=== PATIENT | female | born 1935 | race Caucasian/White ===

== ENCOUNTER → 2016-07-05 | Outpatient (CLI) | payer MEDICARE, OTHER ==
[~2016-07-05] MED LIST: AMBI10TA PO; ASPI325T PO; FISH300C2 PO; NITR0.4S SL; PERC5TAB12 PO; SIMV20TA PO; TAB-TAB PO
[2016-07-05 13:46] LABS: ALKALINE PHOSPHATASE 53 U/L (45-117); ALT (GPT) 25 U/L (10-53); ANION GAP 7 MEQ/L (5-15); AST (GOT) 18 U/L (15-37); BICARBONATE 27.6 MEQ/L (21.0-32.0); BLOOD UREA NITROGEN 12 MG/DL (7-18); CHLORIDE 107 MEQ/L (98-107); GLOMERULAR FILTRATION RATE 84 ML/MIN (>89); GLUCOSE,FASTING 84 MG/DL (74-99); HDL CHOLESTEROL 99.6 MG/DL (40.0-60.0); LDL CHOLESTEROL 61 MG/DL (0-99); POTASSIUM 3.9 MEQ/L (3.5-5.1); SODIUM (NA) 142 MEQ/L (136-145); TOTAL BILIRUBIN ADULT 0.3 MG/DL (0.2-1.0)
== END ==
LOC: PLAB 08:12
PROVIDERS: ATTEND Family Medicine
DX: I10 Essential (primary) hypertension (principal)
CPT/HCPCS: 36415; 80053; 80061

== ENCOUNTER → 2016-12-10 | Outpatient (CLI) | payer MEDICARE, OTHER ==
[2016-12-10 09:27] LABS: AUTOMATED NEUTROPHIL # 2.8 TH/MM3 (1.8-7.7); BASOPHIL % 0.6 % (0.0-2.0); EOSINOPHIL # 0.2 TH/MM3 (0-0.4); EOSINOPHIL % 4.2 % (0.0-4.0); HEMATOCRIT 43.7 % (35.0-46.0); HEMO FLAGS DIFF FINAL; LYMPHOCYTE # 1.3 TH/MM3 (1.0-4.8); MEAN CELL VOLUME 90.6 FL (80.0-100.0); MEAN CORPUSCULAR HEMOGLOBIN 30.9 PG (27.0-34.0); MEAN CORPUSCULAR HGB CONC 34.1 % (32.0-36.0); NEUT % 59.2 % (16.0-70.0); PLATELET COUNT 191 TH/MM3 (150-450); RED BLOOD COUNT 4.82 MIL/MM3 (4.00-5.30); RED CELL DISTRIBUTION WIDTH 12.9 % (11.6-17.2); WHITE BLOOD COUNT 4.7 TH/MM3 (4.0-11.0)
[2016-12-10 09:56] LABS: ANION GAP 7 MEQ/L (5-15); AST (GOT) 17 U/L (15-37); BLOOD UREA NITROGEN 13 MG/DL (7-18); CHLORIDE 103 MEQ/L (98-107); GLOMERULAR FILTRATION RATE 84 ML/MIN (>89); GLUCOSE,FASTING 82 MG/DL (74-99); POTASSIUM 4.1 MEQ/L (3.5-5.1); SODIUM (NA) 139 MEQ/L (136-145)
[2016-12-10 10:02] LABS: ALKALINE PHOSPHATASE 70 U/L (45-117); ALT (GPT) 24 U/L (10-53); HDL CHOLESTEROL 85.8 MG/DL (40.0-60.0); LDL CHOLESTEROL 73 MG/DL (0-99); TOTAL BILIRUBIN ADULT 0.4 MG/DL (0.2-1.0)
== END ==
LOC: PLAB 07:44
PROVIDERS: ATTEND Family Medicine
DX: E78.5 Hyperlipidemia, unspecified (principal)
CPT/HCPCS: 36415; 80053; 80061; 85025

== ENCOUNTER → 2017-02-13 | Outpatient (CLI) | payer MEDICARE, OTHER ==
[2017-02-13 13:23] LABS: BACTERIA, URINE FEW /hpf; BLOOD, URINE MOD (NEG); COMMENT (UR) CULTURE INDICATED; CULTURE IF INDICATED CULTURE INDICATED; GLUCOSE,URINE NEG (NEG); KETONE, URINE NEG (NEG); MUCUS URINE FEW /lpf (OCC); NITRITE,URINE NEG (NEG); PH, URINE 6.5 (5.0-8.5); URINE COLOR YELLOW (YELLW/STRAW)
== END ==
LOC: PLAB 09:07
PROVIDERS: ATTEND Family Medicine
DX: I10 Essential (primary) hypertension (principal); K59.00 Constipation, unspecified; E78.5 Hyperlipidemia, unspecified; G47.00 Insomnia, unspecified; I47.1 Supraventricular tachycardia
CPT/HCPCS: 81001; 87077; 87086; 87186

== ENCOUNTER 2017-05-04 14:00 | Emergency (ER) | payer MEDICARE, OTHER ==
[~2017-05-04] VITALS: Ht 165.1 cm; Wt 80.0 kg
[2017-05-04 14:08] VITALS: BP 216/86; PULSE 112; RESP 24; TEMP 98.4; O2SAT 92
--- NOTE | 2017-05-04 14:21 | PD ---
HPI Chief Complaint: Complaint Time Seen by Provider: 14:20 Travel History International Travel<30 days: No Contact w/Intl Traveler<30days: No Traveled to known affect area: No History of Present Illness HPI 82-year-old female came to the emergency room with history of suprapubic pain and dysuria for past 2 days. Patient notes that she has a bladder infection because she has had this many times in the past. The last one was about 6 months ago. She says it's very uncomfortable and usually she called her doctor' s office and they prescribed her on the phone but the office is closed today and hence she had to come here. Patient was initially tachycardic in triage. However when I was in the room I checked the pulse myself and it was in the 70s. PFSH Past Medical History Narrative Medical List of his past medical, surgical, social and family history is reviewed from the nursing note. Arthritis: Yes Autoimmune Disease: No Heart Rhythm Problems: No Cancer: Yes (MELANOMA RIGHT EYE, SKIN MELANOMA) Cardiac Catheterization: Yes (NO STENTS) Cardiovascular Problems: Yes (PAROXYSMAL SVT) High Cholesterol: Yes Chemotherapy: No Chest Pain: No Congestive Heart Failure: No Cerebrovascular Accident: No Diabetes: No Diminished Hearing: No Endocrine: No Genitourinary: No Hepatitis: No Hiatal Hernia: No Immune Disorder: No Musculoskeletal: Yes Neurologic: Yes (PERIPHERAL NEUROPATHY, LE WEAKNESS) Psychiatric: No Reproductive: No Respiratory: No Migraines: No Radiation Therapy: No Seizures: No Thyroid Disease: No Past Surgical History Abdominal Surgery: Yes (APPENDECTOMY) Appendectomy: Yes Arteriovenous Shunt: No Body Medical Devices: FALSE RIGHT EYE Cardiac Surgery: No Section: Yes (X 4) Ear Surgery: No Endocrine Surgery: No Eye Surgery: Yes (RIGHT EYE REMOVAL FOR MELANOMA) Genitourinary Surgery: No Gynecologic Surgery: Yes (C SECTIONX4, WESTLEY) Hysterectomy: Yes Insulin Pump: No Joint Replacement: No Oral Surgery: No Pacemaker: No Thoracic Surgery: No Tonsillectomy: Yes Other Surgery: Yes (BREAST AUGMENTATION) Social History Alcohol Use: Yes (TWICE A MONTH) Tobacco Use: No Substance Use: No Allergies-Medications (Allergen,Severity, Reaction): Coded Allergies: No Known Allergies (Verified Adverse Reaction, Unknown, 05/04/17) Comments No known drug allergies. Reported Meds & Prescriptions Reported Meds & Active Scripts Active Macrobid (Nitrofurantoin Monoh/Nitrofur Macro) 100 Mg Cap 100 Mg PO BID 10 Days Reported Zolpidem (Zolpidem Tartrate) 10 Mg Tab 10 Mg PO HS PRN Simvastatin 20 Mg Tab 20 Mg PO DAILY One Daily (Multiple Vitamin) 1 Tab 1 Tab PO DAILY Aspirin 325 Mg Tab 325 Mg PO DAILY Narrative Medication List of his home medications reviewed from the nursing note. Review of Systems Except as stated in HPI: all other systems reviewed are Neg Genitourinary: Positive: Urgency, Frequency, Dysuria Physical Exam Narrative GENERAL: Awake, alert, elderly, anxious SKIN: Focused skin assessment warm/dry. HEAD: Atraumatic. Normocephalic. EYES: Pupils equal and round. No scleral icterus. No injection or drainage. Right prosthetic eye ENT: No nasal bleeding or discharge. Mucous membranes pink and moist. NECK: Trachea midline. No JVD. CARDIOVASCULAR: Regular rate and rhythm. No murmur appreciated. RESPIRATORY: No accessory muscle use. Clear to auscultation. Breath sounds equal bilaterally. GASTROINTESTINAL: Abdomen soft, non-tender, nondistended. Hepatic and splenic margins not palpable. MUSCULOSKELETAL: No obvious deformities. No clubbing. No cyanosis. No edema. NEUROLOGICAL: Awake and alert. No obvious cranial nerve deficits. Motor grossly within normal limits. Normal speech. PSYCHIATRIC: Appropriate mood and affect; insight and judgment normal. Data Data Last Documented VS Vital Signs Date Time Temp Pulse Resp B/P (MAP) Pulse Ox O2 Delivery O2 Flow Rate FiO2 05/04/17 15:27 05/04/17 15:20 76 18 95 Room Air 05/04/17 14:43 97.9 Orders Orders Urinalysis - C+S If Indicated (05/04/17 14:02) Nitrofurantoin Monohyd Macrocr (Macrobid (05/04/17 14:30) Phenazopyridine (Pyridium) (05/04/17 14:30) Urine Culture (05/04/17 14:10) Ed Discharge Order (05/04/17 15:08) Labs Laboratory Tests Test 05/04/17 14:10 Urine Collection Type CLEAN CATCH Urine Color STRAW Urine Turbidity SLIGHT Urine pH 6.5 Urine Specific [place] 1.004 Urine Protein NEG mg/dL Urine Glucose (UA) NEG mg/dL Urine Ketones NEG mg/dL Urine Occult Blood SMALL Urine Nitrite NEG Urine Bilirubin NEG Urine Leukocyte Esterase LARGE Urine RBC 4-9 /hpf Urine WBC 50-99 /hpf Urine WBC Clumps MOD Urine Squamous Epithelial Cells 0-5 /hpf Urine Amorphous Sediment MOD Urine Bacteria FEW /hpf Microscopic Urinalysis Comment CULTURE INDICATED Urine Collection Time 1410 [facility] Medical Decision Making Medical Screen Exam Complete: Yes Emergency Medical Condition: Yes Medical Record Reviewed: Yes Differential Diagnosis Cystitis Narrative Course 3:06 PM patient was given Pyridium and Macrobid. UA has come back in its positive. I'll discharge her home on a prescription of Macrobid. Procedures EKG Prior to Arrival: No Diagnosis Primary Impression: Cystitis Referrals: Primary Care Physician Additional Instructions: Take the medication as per the prescription direction. Return to the ER if the condition worsens or any other new concerns. Lots of fluid and cranberry juice. Med/Other Pt SpecificInfo: Prescription(s) given Scripts Nitrofurantoin Monohydrate Macrocrystals (Macrobid) 100 Mg Cap 100 MG PO BID for Infection for 10 Days, #20 CAP 0 Refills Prov: Reny De La Garza MD 05/04/17 Disposition: DISCHARGE HOME Condition: Stable Reny De La Garza MD May 04, 2017 14:21
[2017-05-04] MEDS ORDERED: PHENAZOPYRIDINE HCL 100 MG TAB PO ONE (14:30)
[2017-05-04] MEDS ORDERED: NITROFURANTOIN MONOHYD MACROCR 100 MG CAP PO ONE (14:30)
[2017-05-04 14:43] VITALS: TEMP 97.9
[2017-05-04 14:47] LABS: BILIRUBIN, URINE NEG (NEG); BLOOD, URINE SMALL (NEG); GLUCOSE,URINE NEG (NEG); KETONE, URINE NEG (NEG); NITRITE,URINE NEG (NEG); PH, URINE 6.5 (5.0-8.5); URINE LEUKOCYTE ESTERASE LARGE (NEG)
[2017-05-04 14:53] LABS: URINE COLOR STRAW (YELLW/STRAW)
[2017-05-04 14:55] LABS: AMORPHOUS SEDIMENT, URINE MOD; BACTERIA, URINE FEW /hpf; SQUAMOUS EPITHELIAL CELL URINE 0-5 /hpf (0-5); WHITE BLOOD CELL CLUMPS MOD
[2017-05-04] MEDS ORDERED: MACR100C2 PO (15:07)
[2017-05-04 15:20] VITALS: BP 133/76; PULSE 76; RESP 18; O2SAT 95
[2017-05-04] MEDS ORDERED: SIMV20TA PO (16:36)
[2017-05-04] MEDS ORDERED: MULT-207 PO (16:36)
[2017-05-04] MEDS ORDERED: ASPI-183 PO (16:36)
[2017-05-04] MEDS ORDERED: ZOLP10TA3 PO (16:36)
== END 2017-05-04 15:27 | disposition home or self-care (01) ==
LOC: PHED 14:00
DX: N30.90 Cystitis, unspecified without hematuria (principal); M19.90 Unspecified osteoarthritis, unspecified site; E78.00 Pure hypercholesterolemia, unspecified; G62.9 Polyneuropathy, unspecified; Z79.82 Long term (current) use of aspirin; Z79.899 Other long term (current) drug therapy
CPT/HCPCS: 81001; 87086; 99283

== ENCOUNTER 2017-09-09 18:51 | Emergency (ER) | payer MEDICARE, OTHER ==
[~2017-09-09] VITALS: Ht 165.1 cm; Wt 80.0 kg
[~2017-09-09 18:51] MED LIST changes: -AMBI10TA PO; +ASPI-183 PO; -ASPI325T PO; -FISH300C2 PO; +MACR100C2 PO; +MULT-207 PO; -NITR0.4S SL; -PERC5TAB12 PO; -TAB-TAB PO; +ZOLP10TA3 PO
[2017-09-09 18:59] VITALS: BP 179/76; PULSE 68; RESP 17; TEMP 99.3; O2SAT 93
[2017-09-09] MEDS ORDERED: METO25TA3 PO (19:12)
[2017-09-09] MEDS ORDERED: SODIUM CHLORID 0.9% 500 ML INJ 500 ML IV ONE (19:30)
[2017-09-09] MEDS ORDERED: SODIUM CHLORIDE 0.9% FLUSH 10 ML FLUSH IVF PRN (19:30)
--- NOTE | 2017-09-09 19:37 | PD ---
HPI Chief Complaint: Syncope/Near-Syncope Time Seen by Provider: 19:20 Travel History International Travel<30 days: No Contact w/Intl Traveler<30days: No Traveled to known affect area: No History of Present Illness HPI The patient is 82-year-old female who presents to the emergency department via EMS after syncopal episode. The patient states she was up late last night watching [employer] baseball until approximately 1:15 AM. The patient then got up early this morning to take her son into an appointment to obtain a port for cancer. The patient then states she multiple things to do throughout the day and eventually made a 12 ballpark earlier tonight. The patient was sitting down with her head down praying when she apparently had a syncopal episode. The patient does not recall the events, however, states when she awakened she felt nauseous and had one episode of vomiting. When EMS arrived they noted that her systolic blood pressure was in the 80s. The patient states that her symptoms have resolved upon arrival to the emergency department. The patient states she has been under a lot of stress recently with her son having carcinoma and her sister also having pancreatic carcinoma. The patient denied any chest pain, shortness of breath, palpitations, lightheadedness, or headache prior to the event or after the event. She states her symptoms have currently resolved. The patient's primary physician is Dr. Tristan. The patient's park superintendent is Dr. Stanley. [facility] Past Medical History Arthritis: Yes Autoimmune Disease: No Heart Rhythm Problems: No Cancer: Yes (MELANOMA RIGHT EYE, SKIN MELANOMA) Cardiac Catheterization: Yes (NO STENTS) Cardiovascular Problems: Yes (Dr. Lo, heart caths) High Cholesterol: Yes Chemotherapy: No Chest Pain: No Congestive Heart Failure: No Cerebrovascular Accident: No Diabetes: No Diminished Hearing: No Endocrine: No Genitourinary: No Hepatitis: No Hiatal Hernia: No Immune Disorder: No Musculoskeletal: Yes Neurologic: Yes (PERIPHERAL NEUROPATHY, LE WEAKNESS) Psychiatric: No Reproductive: No Respiratory: No Migraines: No Radiation Therapy: No Seizures: No Thyroid Disease: No ?: Not Past Surgical History Abdominal Surgery: Yes (APPENDECTOMY) Appendectomy: Yes Arteriovenous Shunt: No Body Medical Devices: FALSE RIGHT EYE Cardiac Surgery: No Section: Yes (X 4) Ear Surgery: No Endocrine Surgery: No Eye Surgery: Yes (RIGHT EYE REMOVAL FOR MELANOMA) Genitourinary Surgery: No Gynecologic Surgery: Yes (C SECTIONX4, WESTLEY) Hysterectomy: Yes Insulin Pump: No Joint Replacement: No Oral Surgery: No Pacemaker: No Thoracic Surgery: No Tonsillectomy: Yes Other Surgery: Yes (BREAST AUGMENTATION) Social History Alcohol Use: Yes (TWICE A MONTH) Tobacco Use: No Substance Use: No Allergies-Medications (Allergen,Severity, Reaction): Coded Allergies: No Known Allergies (Verified Adverse Reaction, Unknown, 09/09/17) Reported Meds & Prescriptions Reported Meds & Active Scripts Active Reported Metoprolol Tartrate 25 Mg Tab 12.5 Mg PO BID Zolpidem (Zolpidem Tartrate) 10 Mg Tab 10 Mg PO HS PRN Simvastatin 20 Mg Tab 20 Mg PO DAILY One Daily (Multiple Vitamin) 1 Tab 1 Tab PO DAILY Aspirin 325 Mg Tab 325 Mg PO DAILY Review of Systems Except as stated in HPI: all other systems reviewed are Neg General / Constitutional: No: Fever Eyes: Positive: Other (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 SKIN: Focused skin assessment warm/dry. HEAD: Atraumatic. Normocephalic. EYES: Artificial eye on the right. Left pupil is 3 mm and reactive. ENT: No nasal bleeding or discharge. Mucous membranes pink and moist. NECK: Trachea midline. No JVD. CARDIOVASCULAR: Regular rate and rhythm. No murmur appreciated. Heart rate in the 70s. RESPIRATORY: No accessory muscle use. Clear to auscultation. Breath sounds equal bilaterally. GASTROINTESTINAL: Abdomen soft, non-tender, nondistended. No guarding or rigidity. No rebound tenderness. Well-healed midline scar from umbilicus inferiorly. Well-healed scar in the right lower quadrant. MUSCULOSKELETAL: No obvious deformities. No clubbing. No cyanosis. Trace edema. NEUROLOGICAL: Awake and alert. No obvious cranial nerve deficits. Motor grossly within normal limits. Normal speech. Nonfocal. Oriented 4. Follows commands without difficulty. PSYCHIATRIC: Appropriate mood and affect; insight and judgment normal. Data Data Last Documented VS Vital Signs Date Time Temp Pulse Resp B/P (MAP) Pulse Ox O2 Delivery O2 Flow Rate FiO2 09/09/17 20:07 75 18 151/72 (98) 80 20 162/72 (102) 87 20 170/86 (114) 09/09/17 19:29 Room Air 09/09/17 18:59 99.3 93 Orders Orders Complete Blood Count With Diff (09/09/17 19:27) Comprehensive Metabolic Panel (09/09/17 19:27) Magnesium (Mg) (09/09/17 19:27) Ecg Monitoring (09/09/17 19:27) Iv Access Insert/Monitor (09/09/17 19:27) Oximetry (09/09/17 19:27) Sodium Chloride 0.9% Flush (Ns Flush) (09/09/17 19:30) Orthostatic Vital Signs (09/09/17 19:27) Sodium Chlorid 0.9% 500 Ml Inj (Ns 500 M (09/09/17 19:30) Electrocardiogram (09/09/17 18:15) Potassium Chloride (Kcl) (09/09/17 21:30) Labs Laboratory Tests Test 09/09/17 19:31 White Blood Count 8.3 TH/MM3 Red Blood Count 4.45 MIL/MM3 Hemoglobin 13.4 GM/DL Hematocrit 39.8 % Mean Corpuscular Volume 89.4 FL Mean Corpuscular Hemoglobin 30.0 PG Mean Corpuscular Hemoglobin Concent 33.6 % Red Cell Distribution Width 13.2 % Platelet Count 209 TH/MM3 Mean Platelet Volume 8.3 FL Neutrophils (%) (Auto) 69.7 % Lymphocytes (%) (Auto) 21.9 % Monocytes (%) (Auto) 7.2 % Eosinophils (%) (Auto) 0.9 % Basophils (%) (Auto) 0.3 % Neutrophils # (Auto) 5.8 TH/MM3 Lymphocytes # (Auto) 1.8 TH/MM3 Monocytes # (Auto) 0.6 TH/MM3 Eosinophils # (Auto) 0.1 TH/MM3 Basophils # (Auto) 0.0 TH/MM3 CBC Comment DIFF FINAL Differential Comment Blood Urea Nitrogen 15 MG/DL Creatinine 0.84 MG/DL Random Glucose 99 MG/DL Total Protein 6.5 GM/DL Albumin 3.6 GM/DL Calcium Level 8.5 MG/DL Magnesium Level 2.3 MG/DL Alkaline Phosphatase 56 U/L Aspartate Amino Transf (AST/SGOT) 19 U/L Alanine Aminotransferase (ALT/SGPT) 27 U/L Total Bilirubin 0.3 MG/DL Sodium Level 139 MEQ/L Potassium Level 3.3 MEQ/L Chloride Level 104 MEQ/L Carbon Dioxide Level 25.9 MEQ/L Anion Gap 9 MEQ/L Estimat Glomerular Filtration Rate 65 ML/MIN [facility] Medical Decision Making Medical Screen Exam Complete: Yes Emergency Medical Condition: Yes Medical Record Reviewed: Yes Interpretation(s) EKG reveals sinus rhythm with occasional unifocal PVC. Nonspecific ST changes. Laboratory Tests Test 09/09/17 19:31 White Blood Count 8.3 TH/MM3 Red Blood Count 4.45 MIL/MM3 Hemoglobin 13.4 GM/DL Hematocrit 39.8 % Mean Corpuscular Volume 89.4 FL Mean Corpuscular Hemoglobin 30.0 PG Mean Corpuscular Hemoglobin Concent 33.6 % Red Cell Distribution Width 13.2 % Platelet Count 209 TH/MM3 Mean Platelet Volume 8.3 FL Neutrophils (%) (Auto) 69.7 % Lymphocytes (%) (Auto) 21.9 % Monocytes (%) (Auto) 7.2 % Eosinophils (%) (Auto) 0.9 % Basophils (%) (Auto) 0.3 % Neutrophils # (Auto) 5.8 TH/MM3 Lymphocytes # (Auto) 1.8 TH/MM3 Monocytes # (Auto) 0.6 TH/MM3 Eosinophils # (Auto) 0.1 TH/MM3 Basophils # (Auto) 0.0 TH/MM3 CBC Comment DIFF FINAL Differential Comment Blood Urea Nitrogen 15 MG/DL Creatinine 0.84 MG/DL Random Glucose 99 MG/DL Total Protein 6.5 GM/DL Albumin 3.6 GM/DL Calcium Level 8.5 MG/DL Magnesium Level 2.3 MG/DL Alkaline Phosphatase 56 U/L Aspartate Amino Transf (AST/SGOT) 19 U/L Alanine Aminotransferase (ALT/SGPT) 27 U/L Total Bilirubin 0.3 MG/DL Sodium Level 139 MEQ/L Potassium Level 3.3 MEQ/L Chloride Level 104 MEQ/L Carbon Dioxide Level 25.9 MEQ/L Anion Gap 9 MEQ/L Estimat Glomerular Filtration Rate 65 ML/MIN Differential Diagnosis Differential diagnosis includes vasovagal syncope, orthostatic hypotension, dehydration, arrhythmia, aortic stenosis, neurogenic syncope, seizure, subarachnoid hemorrhage, pulmonary embolism, dissection, electrolyte abnormality. Narrative Course IV was established, labs are drawn and sent, and the patient was placed on cardiac telemetry monitoring and continuous pulse oximetry monitoring. EKG was ordered and interpreted. Orthostatic vital signs were obtained. The patient was administered IV fluids and monitored on telemetry monitoring for possible arrhythmia. The patient states she was under a lot of stress earlier today, was out in the heat when this episode occurred while sitting. She denies any headache, chest pain, neck pain, shortness of breath, or focal deficits prior to the event or after the event. Her symptoms have currently resolved. The patient's hemoglobin was within normal limits. Potassium was mildly low at 3.3 , this was replaced orally. Orthostatic vital signs were unremarkable. The patient was asymptomatic, after discussion it was agreed she would be discharged home if she is able to ablate without difficulty. Diagnosis Primary Impression: Syncope Qualified Codes: R55 - Syncope and collapse Additional Impression: Hypokalemia Patient Instructions: General Instructions Additional Instructions: Please provide the patient a copy of her labs at discharge. Follow-up with your primary physician. Return if symptoms worsen or progress. Med/Other Pt SpecificInfo: No Change to Meds Disposition: 01 DISCHARGE HOME Condition: Stable Hawk Renae MD Sep 09, 2017 19:37
[2017-09-09 19:38] LABS: AUTOMATED NEUTROPHIL # 5.8 TH/MM3 (1.8-7.7); BASOPHIL % 0.3 % (0.0-2.0); EOSINOPHIL # 0.1 TH/MM3 (0-0.4); EOSINOPHIL % 0.9 % (0.0-4.0); HEMATOCRIT 39.8 % (35.0-46.0); HEMOGLOBIN 13.4 GM/DL (11.6-15.3); LYMPH % 21.9 % (9.0-44.0); LYMPHOCYTE # 1.8 TH/MM3 (1.0-4.8); MEAN CELL VOLUME 89.4 FL (80.0-100.0); MEAN CORPUSCULAR HGB CONC 33.6 % (32.0-36.0); MEAN PLATELET VOLUME 8.3 FL (7.0-11.0); MONO % 7.2 % (0.0-8.0); MONOCYTE # 0.6 TH/MM3 (0-0.9); NEUT % 69.7 % (16.0-70.0); PLATELET COUNT 209 TH/MM3 (150-450); RED BLOOD COUNT 4.45 MIL/MM3 (4.00-5.30); RED CELL DISTRIBUTION WIDTH 13.2 % (11.6-17.2); WHITE BLOOD COUNT 8.3 TH/MM3 (4.0-11.0)
[2017-09-09 19:59] LABS: ALBUMIN 3.6 GM/DL (3.4-5.0); AST (GOT) 19 U/L (15-37); BICARBONATE 25.9 MEQ/L (21.0-32.0); BLOOD UREA NITROGEN 15 MG/DL (7-18); CALCIUM 8.5 MG/DL (8.5-10.1); CHLORIDE 104 MEQ/L (98-107); CREATININE 0.84 MG/DL (0.50-1.00); GLOMERULAR FILTRATION RATE 65 ML/MIN (>89); GLUCOSE,RANDOM 99 MG/DL (74-106); MAGNESIUM 2.3 MG/DL (1.5-2.5); SODIUM (NA) 139 MEQ/L (136-145)
[2017-09-09 20:01] LABS: ALT (GPT) 27 U/L (10-53)
[2017-09-09 20:03] LABS: ALKALINE PHOSPHATASE 56 U/L (45-117); TOTAL BILIRUBIN ADULT 0.3 MG/DL (0.2-1.0); TOTAL PROTEIN 6.5 GM/DL (6.4-8.2)
[2017-09-09 20:07] VITALS: BP_SYST 151; BP_SYST 162; BP_SYST 170; BP_DIAS 72; BP_DIAS 86; RESP 18; RESP 20
[2017-09-09] MEDS ORDERED: POTASSIUM CHLORIDE 20 MEQ CONTROLLED RELEASE TAB PO ONE (21:30)
--- NOTE | 2017-09-10 19:12 | EKG ---
Date Performed: 09/09/2017 Time Performed: 18:15:37 PTAGE: 82 years EKG: Sinus rhythm WITH OCCASIONAL VENTRICULAR PREMATURE COMPLEXES ST DEVIATION AND MODERATE T-WAVE ABNORMALITY ABNORMA L ECG PREVIOUS TRACING : 01/29/2013 08.28 Compared to previous tracing, PVCs present DOCTOR: Yoan Garcia Interpretating Date/Time 09/10/2017 19:12:45
== END 2017-09-09 22:18 | disposition home or self-care (01) ==
LOC: NEPE 18:51
DX: R55 Syncope and collapse (principal); E87.6 Hypokalemia; R94.31 Abnormal electrocardiogram [ECG] [EKG]; M19.90 Unspecified osteoarthritis, unspecified site; E78.00 Pure hypercholesterolemia, unspecified; G62.9 Polyneuropathy, unspecified; Z85.820 Personal history of malignant melanoma of skin; Z90.01 Acquired absence of eye
CPT/HCPCS: 80053; 83735; 85025; 93005; 96360; 99284; J7040